=== PATIENT | male | born 1935 | race Caucasian/White ===

== ENCOUNTER 2017-03-30 15:52 | Inpatient (IN) | payer OTHER ==
[~2017-03-30] VITALS: Ht 180.3 cm; Wt 55.0 kg
[2017-03-30 16:25] LABS: EOSINOPHIL (%) 0 % (0-5); HEMATOCRIT 28.5 % (38.0-50.0); IMMATURE GRANULOCYTE (%) 1.1 % (0.0-0.7); IMMATURE GRANULOCYTE COUNT 0.3 K/uL; INSTRUMENT ABS NEUTROPHIL CT 21.7 K/uL; LYMPHOCYTE COUNT 0.5 K/uL (1.0-2.8); MCH 29.7 PG (29.0-34.0); MCHC 30.9 G/DL (30.0-36.0); MCV 96.3 FL (86-99); MEAN PLAT.VOLUME 9.5 uM^3 (9.0-12.4); MONOCYTE (%) 2.9 % (3-12); MONOCYTE COUNT 0.7 K/uL (0-0.8); NEUTROPHIL (%) 93.9 % (45-76); NEUTROPHIL COUNT 21.7 K/uL (1.8-6.4); PLATELET COUNT 239 K/uL (156-360); RBC DIS.WIDTH-CV 15.4 % (11.8-14.6); RBC DIS.WIDTH-SD 53.8 % (39-53); RED BLOOD COUNT 2.96 M/uL (4.00-5.50); WHITE BLOOD COUNT 23.1 K/uL (4.1-10.2)
[2017-03-30 16:33] LABS: CHLORIDE 113 mEq/L (99-109); POTASSIUM 4.9 mEq/L (3.7-5.4); SODIUM 142 mEq/L (136-147)
[2017-03-30 16:35] LABS: GLUCOSE 131 mg/dL (70-99)
[2017-03-30 16:37] LABS: ANION GAP 19 MEQ/L (2-14); TOTAL BILIRUBIN 0.5 mg/dL (0.0-1.0)
[2017-03-30 16:39] LABS: ALKALINE PHOSPHATASE 51 IU/L (3-129)
[2017-03-30 16:40] LABS: UREA NITROGEN (BUN) 99 mg/dL (9-23)
[2017-03-30 16:42] LABS: TOTAL CK 1839 IU/L (1-294)
[2017-03-30 16:48] LABS: TROP-I INTERPRETATION NEGATIVE; TROPONIN-I 0.11 ng/mL (0.0-0.30)
[2017-03-30 16:53] LABS: GFR ESTIMATE (CALCULATED) 4 mL/min/
[2017-03-30 17:10] LABS: CREATINE KINASE 1839 IU/L (1-294)
[2017-03-30 17:12] LABS: CK-MB 20.8 ng/mL (0.0-4.9)
[2017-03-30] MEDS ORDERED: VITAMIN D-32000 UNI2 PO (17:53)
[2017-03-30] MEDS ORDERED: ZYRTEC10 M3 PO (17:53)
[2017-03-30] MEDS ORDERED: FLOMAX0.4 MG PO (17:53)
[2017-03-30 18:37] LABS: ADD MIUA? YES; BILIRUBIN NEGATIVE; BLOOD LARGE; COLOR YELLOW ((YELLOW)); GLUCOSE (STRIP) 50; KETONES 5; LEUKOCYTES TRACE; NITRITE NEGATIVE; PROTEIN (STRIP) 30; SPECIFIC GRAVITY 1.013 (1.000-1.030); UROBILINOGEN 0.2 MG/DL (0.2-1.0)
[2017-03-30 18:44] LABS: BACTERIA NONE SEEN /HPF; EPITHELIAL CELLS RARE /HPF; MUCUS NONE SEEN /LPF; RED BLOOD CELLS 0-5 /HPF (0-5); UCUL ADDED? NO; WHITE BLOOD CELLS 0-5 /HPF (0-5)
[2017-03-30 18:45] LABS: URIC ACID 13.4 mg/dL (3.1-9.2)
[2017-03-30 18:45] LABS: BASE EXCESS -12.3 mEq/L (-3 to +3); BICARBONATE 12.6 mEq/L (22-26); CARBOXY HGB 1.2 % (0-5); COMMENTS - BLOOD GASES C+; METHEMOGLOBIN 0.6 % (0-1.5); PCO2 25 mm Hg (35-45); PO2 115 mm Hg (80-100); SITE RB; pH 7.31 (7.35-7.45)
[2017-03-30 18:46] LABS: FI02 21 %
[2017-03-30 20:10] LABS: UR CREATININE CONCENTRATION 91.5 MG/DL
[2017-03-30 20:35] LABS: IRON 10 MCG/DL (35-150)
[2017-03-30 21:12] VITALS: BP 189/89
[2017-03-30 21:50] VITALS: BP 189/89
[2017-03-30 22:33] VITALS: BP 157/71
[2017-03-31 03:45] VITALS: BP 124/60
[2017-03-31 05:44] LABS: HEMATOCRIT 24.2 % (38.0-50.0); IMM.RETIC FRACTION 22.7 % (3-19); MCH 29.6 PG (29.0-34.0); MCV 95.7 FL (86-99); MEAN PLAT.VOLUME 10.6 uM^3 (9.0-12.4); NRBC (%) 0.1 /100 WBC (0-0); PLATELET COUNT 220 K/uL (156-360); RBC DIS.WIDTH-CV 15.6 % (11.8-14.6); RBC DIS.WIDTH-SD 54.1 % (39-53); RED BLOOD COUNT 2.53 M/uL (4.00-5.50); RETICULOCYTE COUNT 1.1 % (0.5-1.8); WHITE BLOOD COUNT 15.3 K/uL (4.1-10.2)
[2017-03-31 06:17] LABS: ANION GAP 18 MEQ/L (2-14); CHLORIDE 111 MEQ/L (99-109); GFR ESTIMATE (CALCULATED) 5 mL/min/; GLUCOSE 108 mg/dL (70-99); SAMPLE HEMOLYSIS CHECK 0; SAMPLE ICTERIC CHECK 0; SAMPLE LIPEMIA CHECK 0; SODIUM 145 MEQ/L (136-147); UREA NITROGEN (BUN) 97 mg/dL (9-23)
[2017-03-31 07:24] VITALS: BP 121/57
[2017-03-31 07:45] LABS: INTACT PARATHYROID HORMONE 97 pg/mL (10-69)
[2017-03-31 08:07] VITALS: BP 109/49
[2017-03-31 08:10] LABS: URINE TOTAL PROTEIN 199 MG/DL (0-10)
[2017-03-31 10:18] LABS: INTERNAL CONTROL VALID? YES
[2017-03-31 11:51] VITALS: BP 119/59
[2017-03-31 14:59] VITALS: BP 111/53
[2017-03-31 20:37] VITALS: BP 110/52
[2017-04-01 00:17] VITALS: BP 120/77
[2017-04-01 04:21] VITALS: BP 107/54
[2017-04-01 05:10] LABS: HEMATOCRIT 22.3 % (38.0-50.0); MCH 29.8 PG (29.0-34.0); MCHC 31.4 G/DL (30.0-36.0); MCV 94.9 FL (86-99); MEAN PLAT.VOLUME 10.5 uM^3 (9.0-12.4); NRBC (%) 0.2 /100 WBC (0-0); PLATELET COUNT 195 K/uL (156-360); RBC DIS.WIDTH-CV 15.5 % (11.8-14.6); RBC DIS.WIDTH-SD 52.9 % (39-53); RED BLOOD COUNT 2.35 M/uL (4.00-5.50); WHITE BLOOD COUNT 11.6 K/uL (4.1-10.2)
[2017-04-01 05:42] LABS: ANION GAP 15 MEQ/L (2-14); CHLORIDE 106 MEQ/L (99-109); GFR ESTIMATE (CALCULATED) 5 mL/min/; GLUCOSE 93 mg/dL (70-99); POTASSIUM 3.8 MEQ/L (3.7-5.4); SAMPLE HEMOLYSIS CHECK 0; SAMPLE ICTERIC CHECK 0; SAMPLE LIPEMIA CHECK 0; SODIUM 141 MEQ/L (136-147); UREA NITROGEN (BUN) 91 mg/dL (9-23)
[2017-04-01 07:55] VITALS: BP 120/56
[2017-04-01 08:15] LABS: INTERNAL CONTROL VALID? YES
[2017-04-01 11:19] VITALS: BP 98/54
[2017-04-01 20:07] VITALS: BP 107/55
[2017-04-01 23:47] VITALS: BP 109/56
[2017-04-02 03:50] VITALS: BP 100/55
[2017-04-02 05:14] LABS: HEMATOCRIT 22.9 % (38.0-50.0); MCH 29.8 PG (29.0-34.0); MCHC 31.4 G/DL (30.0-36.0); MCV 94.6 FL (86-99); MEAN PLAT.VOLUME 10.7 uM^3 (9.0-12.4); NRBC (%) 0.2 /100 WBC (0-0); PLATELET COUNT 201 K/uL (156-360); RBC DIS.WIDTH-CV 15.5 % (11.8-14.6); RBC DIS.WIDTH-SD 53.7 % (39-53); RED BLOOD COUNT 2.42 M/uL (4.00-5.50); WHITE BLOOD COUNT 12.5 K/uL (4.1-10.2)
[2017-04-02 09:15] VITALS: BP 107/87
[2017-04-02 10:01] LABS: ANION GAP 15 MEQ/L (2-14); CHLORIDE 104 MEQ/L (99-109); GFR ESTIMATE (CALCULATED) 5 mL/min/; GLUCOSE 77 mg/dL (70-99); POTASSIUM 3.9 MEQ/L (3.7-5.4); SAMPLE HEMOLYSIS CHECK 0; SAMPLE ICTERIC CHECK 0; SAMPLE LIPEMIA CHECK 0; SODIUM 139 MEQ/L (136-147); UREA NITROGEN (BUN) 89 mg/dL (9-23)
[2017-04-02 11:24] VITALS: BP 108/71
[2017-04-02 15:50] VITALS: BP 109/67
[2017-04-02 20:34] VITALS: BP 102/54
[2017-04-03] VITALS (12 sets, daily range): BP systolic 113–126; BP diastolic 55–60
[2017-04-03 06:05] LABS: HEMATOCRIT 21.2 % (38.0-50.0); MCH 30.2 PG (29.0-34.0); MCHC 31.6 G/DL (30.0-36.0); MCV 95.5 FL (86-99); MEAN PLAT.VOLUME 11.3 uM^3 (9.0-12.4); NRBC (%) 0.4 /100 WBC (0-0); PLATELET COUNT 188 K/uL (156-360); RBC DIS.WIDTH-CV 15.4 % (11.8-14.6); RBC DIS.WIDTH-SD 53.3 % (39-53); RED BLOOD COUNT 2.22 M/uL (4.00-5.50); WHITE BLOOD COUNT 13.3 K/uL (4.1-10.2)
[2017-04-03 06:39] LABS: ANION GAP 17 MEQ/L (2-14); CHLORIDE 102 MEQ/L (99-109); GFR ESTIMATE (CALCULATED) 5 mL/min/; GLUCOSE 70 mg/dL (70-99); POTASSIUM 3.6 MEQ/L (3.7-5.4); SAMPLE HEMOLYSIS CHECK 0; SAMPLE ICTERIC CHECK 0; SAMPLE LIPEMIA CHECK 0; SODIUM 136 MEQ/L (136-147); UREA NITROGEN (BUN) 84 mg/dL (9-23)
[2017-04-03 16:22] LABS: METH RESISTANT S AUREUS PCR NEGATIVE (NEGATIVE)
[2017-04-03 16:26] LABS: PROBE CHECK PASS; SPECIMEN PROCESSING CONTROL PASS
[2017-04-04] VITALS (7 sets, daily range): BP systolic 122–134; BP diastolic 52–88
[2017-04-04 05:53] LABS: HEMATOCRIT 28.4 % (38.0-50.0); MCH 31.3 PG (29.0-34.0); MCHC 34.5 G/DL (30.0-36.0); MEAN PLAT.VOLUME 11.1 uM^3 (9.0-12.4); NRBC (%) 0.1 /100 WBC (0-0); PLATELET COUNT 180 K/uL (156-360); RBC DIS.WIDTH-CV 16.3 % (11.8-14.6); RBC DIS.WIDTH-SD 53.5 % (39-53); WHITE BLOOD COUNT 13.8 K/uL (4.1-10.2)
[2017-04-04 05:54] LABS: MCV 90.7 FL (86-99); RED BLOOD COUNT 3.13 M/uL (4.00-5.50)
[2017-04-04 06:15] LABS: ANION GAP 16 MEQ/L (2-14); CHLORIDE 102 MEQ/L (99-109); GFR ESTIMATE (CALCULATED) 5 mL/min/; GLUCOSE 72 mg/dL (70-99); SAMPLE HEMOLYSIS CHECK 0; SAMPLE ICTERIC CHECK 0; SAMPLE LIPEMIA CHECK 0; SODIUM 136 MEQ/L (136-147); UREA NITROGEN (BUN) 86 mg/dL (9-23)
[2017-04-05] VITALS (7 sets, daily range): BP systolic 126–161; BP diastolic 57–79
[2017-04-05 05:19] LABS: HEMATOCRIT 30.3 % (38.0-50.0); MCHC 33.7 G/DL (30.0-36.0); MCV 92.1 FL (86-99); MEAN PLAT.VOLUME 11.2 uM^3 (9.0-12.4); NRBC (%) 0.2 /100 WBC (0-0); PLATELET COUNT 209 K/uL (156-360); RBC DIS.WIDTH-CV 16.1 % (11.8-14.6); RBC DIS.WIDTH-SD 53.6 % (39-53); RED BLOOD COUNT 3.29 M/uL (4.00-5.50); WHITE BLOOD COUNT 16.1 K/uL (4.1-10.2)
[2017-04-05 11:53] LABS: ANION GAP 19 MEQ/L (2-14); CHLORIDE 103 MEQ/L (99-109); GFR ESTIMATE (CALCULATED) 5 mL/min/; GLUCOSE 69 mg/dL (70-99); POTASSIUM 4.2 MEQ/L (3.7-5.4); SAMPLE HEMOLYSIS CHECK 0; SAMPLE ICTERIC CHECK 0; SAMPLE LIPEMIA CHECK 0; SODIUM 137 MEQ/L (136-147); UREA NITROGEN (BUN) 87 mg/dL (9-23)
[2017-04-06 07:11] LABS: ANION GAP 18 MEQ/L (2-14); CHLORIDE 101 MEQ/L (99-109); GFR ESTIMATE (CALCULATED) 5 mL/min/; GLUCOSE 58 mg/dL (70-99); POTASSIUM 4.4 MEQ/L (3.7-5.4); SAMPLE HEMOLYSIS CHECK 0; SAMPLE ICTERIC CHECK 0; SAMPLE LIPEMIA CHECK 0; SODIUM 136 MEQ/L (136-147); UREA NITROGEN (BUN) 92 mg/dL (9-23)
[2017-04-06 07:21] VITALS: BP 173/75
[2017-04-06 11:28] LABS: POINT-OF-CARE METER ID UU13113717
[2017-04-06 16:12] VITALS: BP 151/67
[2017-04-07 03:55] VITALS: BP 150/69; BP 157/99
[2017-04-07 05:34] LABS: POINT-OF-CARE METER ID UU13113717
[2017-04-07 06:12] LABS: POINT-OF-CARE METER ID UU13113717
[2017-04-07 06:33] LABS: HEMATOCRIT 30.5 % (38.0-50.0); MCH 29.4 PG (29.0-34.0); MCHC 31.5 G/DL (30.0-36.0); MCV 93.3 FL (86-99); MEAN PLAT.VOLUME 10.5 uM^3 (9.0-12.4); PLATELET COUNT 222 K/uL (156-360); RBC DIS.WIDTH-CV 15.9 % (11.8-14.6); RBC DIS.WIDTH-SD 53.3 % (39-53); RED BLOOD COUNT 3.27 M/uL (4.00-5.50); WHITE BLOOD COUNT 12.6 K/uL (4.1-10.2)
[2017-04-07 06:54] LABS: ANION GAP 19 MEQ/L (2-14); CHLORIDE 104 MEQ/L (99-109); GFR ESTIMATE (CALCULATED) 5 mL/min/; GLUCOSE 78 mg/dL (70-99); POTASSIUM 4.2 MEQ/L (3.7-5.4); SAMPLE HEMOLYSIS CHECK 0; SAMPLE ICTERIC CHECK 0; SAMPLE LIPEMIA CHECK 0; SODIUM 141 MEQ/L (136-147); UREA NITROGEN (BUN) 93 mg/dL (9-23)
[2017-04-07 07:27] VITALS: BP 141/71
[2017-04-07 10:35] LABS: POINT-OF-CARE METER ID UU13113717
[2017-04-07 15:18] VITALS: BP 160/73
[2017-04-07 18:16] LABS: POINT-OF-CARE METER ID UU14188625
[2017-04-08] VITALS: BP 155/68
[2017-04-08 03:24] LABS: POINT-OF-CARE METER ID UU14188625
[2017-04-08 07:44] VITALS: BP 135/59
[2017-04-08 08:45] LABS: EOSINOPHIL (%) 1.6 % (0-5); EOSINOPHIL COUNT 0.2 K/uL (0-0.3); HEMATOCRIT 28.7 % (38.0-50.0); IMMATURE GRANULOCYTE (%) 0.9 % (0.0-0.7); IMMATURE GRANULOCYTE COUNT 0.1 K/uL; INSTRUMENT ABS NEUTROPHIL CT 9.8 K/uL; MCH 29.6 PG (29.0-34.0); MCHC 31.4 G/DL (30.0-36.0); MCV 94.4 FL (86-99); MEAN PLAT.VOLUME 10.8 uM^3 (9.0-12.4); MONOCYTE (%) 12.7 % (3-12); MONOCYTE COUNT 1.6 K/uL (0-0.8); NEUTROPHIL (%) 76.8 % (45-76); NEUTROPHIL COUNT 9.8 K/uL (1.8-6.4); PLATELET COUNT 202 K/uL (156-360); RBC DIS.WIDTH-CV 15.9 % (11.8-14.6); RED BLOOD COUNT 3.04 M/uL (4.00-5.50); WHITE BLOOD COUNT 12.8 K/uL (4.1-10.2)
[2017-04-08 09:25] LABS: ANION GAP 17 MEQ/L (2-14); CHLORIDE 104 MEQ/L (99-109); GFR ESTIMATE (CALCULATED) 5 mL/min/; GLUCOSE 77 mg/dL (70-99); POTASSIUM 3.6 MEQ/L (3.7-5.4); SAMPLE HEMOLYSIS CHECK 0; SAMPLE ICTERIC CHECK 0; SAMPLE LIPEMIA CHECK 0; SODIUM 139 MEQ/L (136-147); UREA NITROGEN (BUN) 84 mg/dL (9-23)
[2017-04-08 10:07] LABS: HBSG INDEX 0.19; HPCA INDEX 0.24
[2017-04-08 10:08] LABS: AHBS INDEX 0.39; HEPATITIS B SURFACE ANTIBODY Nonreactive
[2017-04-08 10:42] LABS: ANTI-HEPATITIS B CORE (TOTAL) Nonreactive; HBCT INDEX 0.19
[2017-04-08 12:39] LABS: POINT-OF-CARE METER ID UU14188625
[2017-04-08 15:35] VITALS: BP 129/62
[2017-04-08 21:23] LABS: POINT-OF-CARE METER ID UU14188625
[2017-04-08 23:44] VITALS: BP 139/67
[2017-04-09 09:08] LABS: HEMATOCRIT 28.3 % (38.0-50.0); MCH 29.8 PG (29.0-34.0); MCHC 31.1 G/DL (30.0-36.0); MCV 95.9 FL (86-99); MEAN PLAT.VOLUME 11.3 uM^3 (9.0-12.4); PLATELET COUNT 186 K/uL (156-360); RBC DIS.WIDTH-CV 16.1 % (11.8-14.6); RBC DIS.WIDTH-SD 55.3 % (39-53); RED BLOOD COUNT 2.95 M/uL (4.00-5.50); WHITE BLOOD COUNT 11.4 K/uL (4.1-10.2)
[2017-04-09 10:02] LABS: ANION GAP 12 MEQ/L (2-14); CHLORIDE 106 MEQ/L (99-109); GFR ESTIMATE (CALCULATED) 7 mL/min/; POTASSIUM 3.6 MEQ/L (3.7-5.4); SAMPLE HEMOLYSIS CHECK 0; SAMPLE ICTERIC CHECK 0; SAMPLE LIPEMIA CHECK 0; SODIUM 140 MEQ/L (136-147); UREA NITROGEN (BUN) 53 mg/dL (9-23)
[2017-04-09 10:03] LABS: GLUCOSE 109 mg/dL (70-99)
[2017-04-09 11:55] VITALS: BP 149/69
[2017-04-09 12:09] LABS: POINT-OF-CARE METER ID UU14188625
[2017-04-09 15:39] VITALS: BP 165/73
[2017-04-09 21:17] LABS: POINT-OF-CARE METER ID UU14188625
[2017-04-09 23:18] VITALS: BP 146/69
[2017-04-10 05:00] LABS: POINT-OF-CARE METER ID UU13113717
[2017-04-10 07:00] LABS: HEMATOCRIT 28.6 % (38.0-50.0); MCH 31.5 PG (29.0-34.0); MCHC 32.5 G/DL (30.0-36.0); MCV 96.9 FL (86-99); MEAN PLAT.VOLUME 11.7 uM^3 (9.0-12.4); PLATELET COUNT 155 K/uL (156-360); RBC DIS.WIDTH-CV 16.2 % (11.8-14.6); RBC DIS.WIDTH-SD 56.1 % (39-53); RED BLOOD COUNT 2.95 M/uL (4.00-5.50); WHITE BLOOD COUNT 11.7 K/uL (4.1-10.2)
[2017-04-10 07:21] LABS: ANION GAP 12 MEQ/L (2-14); CHLORIDE 105 MEQ/L (99-109); GFR ESTIMATE (CALCULATED) 11 mL/min/; GLUCOSE 83 mg/dL (70-99); POTASSIUM 3.8 MEQ/L (3.7-5.4); SAMPLE HEMOLYSIS CHECK 0; SAMPLE ICTERIC CHECK 0; SAMPLE LIPEMIA CHECK 0; SODIUM 140 MEQ/L (136-147); UREA NITROGEN (BUN) 35 mg/dL (9-23)
[2017-04-10 08:34] VITALS: BP 124/64
[2017-04-10 13:14] VITALS: BP 142/67
[2017-04-10 15:58] VITALS: BP 144/65
[2017-04-10 20:30] VITALS: BP 128/75
[2017-04-10 20:46] LABS: POINT-OF-CARE METER ID UU14188625
[2017-04-11 00:02] VITALS: BP 134/66
[2017-04-11 05:50] LABS: HEMATOCRIT 28.8 % (38.0-50.0); MCH 29.5 PG (29.0-34.0); MCHC 30.2 G/DL (30.0-36.0); MCV 97.6 FL (86-99); PLATELET COUNT 148 K/uL (156-360); RBC DIS.WIDTH-CV 16.2 % (11.8-14.6); RBC DIS.WIDTH-SD 55.9 % (39-53); RED BLOOD COUNT 2.95 M/uL (4.00-5.50); WHITE BLOOD COUNT 11.5 K/uL (4.1-10.2)
[2017-04-11 06:16] LABS: ANION GAP 7 MEQ/L (2-14); ANION GAP 8 MEQ/L (2-14); CHLORIDE 101 MEQ/L (99-109); CHLORIDE 104 MEQ/L (99-109); GFR ESTIMATE (CALCULATED) 16 mL/min/; GLUCOSE 82 mg/dL (70-99); GLUCOSE 83 mg/dL (70-99); POTASSIUM 3.7 MEQ/L (3.7-5.4); SAMPLE HEMOLYSIS CHECK 0; SAMPLE ICTERIC CHECK 0; SAMPLE LIPEMIA CHECK 0; SODIUM 137 MEQ/L (136-147); SODIUM 139 MEQ/L (136-147); UREA NITROGEN (BUN) 20 mg/dL (9-23)
[2017-04-11 06:17] LABS: GFR ESTIMATE (CALCULATED) 15 mL/min/
[2017-04-11 06:27] LABS: POINT-OF-CARE METER ID UU13113717
[2017-04-11 07:30] VITALS: BP 142/58
[2017-04-11 07:56] VITALS: BP 129/74
[2017-04-11 08:36] LABS: POINT-OF-CARE METER ID UU14188625
[2017-04-11 11:03] VITALS: BP 142/60
[2017-04-11 12:44] LABS: POINT-OF-CARE METER ID UU14188625
[2017-04-11 17:53] LABS: POINT-OF-CARE METER ID UU13113717
[2017-04-12] LABS: POINT-OF-CARE METER ID UU13113717
[2017-04-12 00:23] VITALS: BP 151/72
[2017-04-12 06:59] LABS: POINT-OF-CARE METER ID UU14188625
[2017-04-12 07:03] VITALS: BP 144/69
[2017-04-12 07:24] LABS: ANION GAP 9 MEQ/L (2-14); CHLORIDE 106 MEQ/L (99-109); GFR ESTIMATE (CALCULATED) 12 mL/min/; GLUCOSE 87 mg/dL (70-99); POTASSIUM 3.9 MEQ/L (3.7-5.4); SAMPLE HEMOLYSIS CHECK 0; SAMPLE ICTERIC CHECK 0; SAMPLE LIPEMIA CHECK 0; SODIUM 143 MEQ/L (136-147); UREA NITROGEN (BUN) 27 mg/dL (9-23)
[2017-04-12 15:01] VITALS: BP 136/62
[2017-04-12 16:37] LABS: POINT-OF-CARE METER ID UU14188625
[2017-04-12 21:59] VITALS: BP 162/70
[2017-04-12 23:35] VITALS: BP 166/71
[2017-04-13 06:55] LABS: ANION GAP 10 MEQ/L (2-14); CHLORIDE 102 MEQ/L (99-109); GFR ESTIMATE (CALCULATED) 10 mL/min/; GLUCOSE 86 mg/dL (70-99); POTASSIUM 4.1 MEQ/L (3.7-5.4); SAMPLE HEMOLYSIS CHECK 0; SAMPLE ICTERIC CHECK 0; SAMPLE LIPEMIA CHECK 0; SODIUM 140 MEQ/L (136-147); UREA NITROGEN (BUN) 33 mg/dL (9-23)
[2017-04-13 07:08] VITALS: BP 173/77
[2017-04-13 15:05] VITALS: BP 138/65
[2017-04-13 16:32] LABS: POINT-OF-CARE METER ID UU13113717
[2017-04-14 00:53] VITALS: BP 172/85
[2017-04-14 08:00] VITALS: BP 137/65
[2017-04-14 08:19] LABS: HEMATOCRIT 29.4 % (38.0-50.0); MCH 30.2 PG (29.0-34.0); MCHC 30.6 G/DL (30.0-36.0); MCV 98.7 FL (86-99); MEAN PLAT.VOLUME 11.3 uM^3 (9.0-12.4); RBC DIS.WIDTH-CV 16.4 % (11.8-14.6); RBC DIS.WIDTH-SD 57.1 % (39-53); RED BLOOD COUNT 2.98 M/uL (4.00-5.50); WHITE BLOOD COUNT 14.4 K/uL (4.1-10.2)
[2017-04-14 08:20] LABS: PLATELET COUNT 203 K/uL (156-360)
[2017-04-14 09:09] LABS: ANION GAP 9 MEQ/L (2-14); CHLORIDE 102 MEQ/L (99-109); GFR ESTIMATE (CALCULATED) 9 mL/min/; GLUCOSE 90 mg/dL (70-99); POTASSIUM 4.1 MEQ/L (3.7-5.4); SAMPLE HEMOLYSIS CHECK 0; SAMPLE ICTERIC CHECK 0; SAMPLE LIPEMIA CHECK 0; SODIUM 138 MEQ/L (136-147); UREA NITROGEN (BUN) 38 mg/dL (9-23)
[2017-04-14 11:48] LABS: POINT-OF-CARE METER ID UU14188625
[2017-04-14 15:53] VITALS: BP 151/76
[2017-04-14 21:51] VITALS: BP 152/80
[2017-04-14 23:42] VITALS: BP 171/84
[2017-04-14 23:48] LABS: POINT-OF-CARE METER ID UU13113717
[2017-04-15] VITALS (7 sets, daily range): BP systolic 146–184; BP diastolic 66–102
[2017-04-15 06:05] LABS: HEMATOCRIT 27.3 % (38.0-50.0); MCH 30.5 PG (29.0-34.0); MCHC 30.8 G/DL (30.0-36.0); MCV 99.3 FL (86-99); MEAN PLAT.VOLUME 11.4 uM^3 (9.0-12.4); PLATELET COUNT 157 K/uL (156-360); RBC DIS.WIDTH-CV 16.7 % (11.8-14.6); RBC DIS.WIDTH-SD 59.4 % (39-53); RED BLOOD COUNT 2.75 M/uL (4.00-5.50); WHITE BLOOD COUNT 9.9 K/uL (4.1-10.2)
[2017-04-15 06:39] LABS: ANION GAP 9 MEQ/L (2-14); CHLORIDE 106 MEQ/L (99-109); GFR ESTIMATE (CALCULATED) 15 mL/min/; GLUCOSE 73 mg/dL (70-99); POTASSIUM 4.1 MEQ/L (3.7-5.4); SAMPLE HEMOLYSIS CHECK 0; SAMPLE ICTERIC CHECK 0; SAMPLE LIPEMIA CHECK 0; SODIUM 142 MEQ/L (136-147); UREA NITROGEN (BUN) 24 mg/dL (9-23)
[2017-04-15 08:24] LABS: POINT-OF-CARE METER ID UU14188625
[2017-04-15 08:24] LABS: POINT-OF-CARE METER ID UU14188625
[2017-04-15 16:16] LABS: POINT-OF-CARE METER ID UU14188625
[2017-04-16 02:11] LABS: POINT-OF-CARE METER ID UU13113717
[2017-04-16 04:28] VITALS: BP 164/74
[2017-04-16 07:12] VITALS: BP 171/84
[2017-04-16 08:13] LABS: HEMATOCRIT 28.4 % (38.0-50.0); MCH 29.9 PG (29.0-34.0); MCHC 29.9 G/DL (30.0-36.0); MEAN PLAT.VOLUME 11.1 uM^3 (9.0-12.4); PLATELET COUNT 161 K/uL (156-360); RBC DIS.WIDTH-CV 16.6 % (11.8-14.6); RBC DIS.WIDTH-SD 59.1 % (39-53); RED BLOOD COUNT 2.84 M/uL (4.00-5.50); WHITE BLOOD COUNT 9.9 K/uL (4.1-10.2)
[2017-04-16 08:34] LABS: ANION GAP 5 MEQ/L (2-14); CHLORIDE 106 MEQ/L (99-109); GFR ESTIMATE (CALCULATED) 12 mL/min/; POTASSIUM 4.1 MEQ/L (3.7-5.4); SAMPLE HEMOLYSIS CHECK 0; SAMPLE ICTERIC CHECK 0; SAMPLE LIPEMIA CHECK 0; SODIUM 138 MEQ/L (136-147); UREA NITROGEN (BUN) 31 mg/dL (9-23)
[2017-04-16 08:35] LABS: GLUCOSE 127 mg/dL (70-99)
[2017-04-16 11:26] VITALS: BP 150/67
[2017-04-16 11:35] LABS: POINT-OF-CARE METER ID UU13113717
[2017-04-16] MEDS ORDERED: MEGESTROL400 MG/10 PO (12:04)
[2017-04-16] MEDS ORDERED: SPIRIVA RESPIMAT4 GM IH (12:05)
[2017-04-16] MEDS ORDERED: ALBUTEROL2.5 MG/0.5 AEROSOL (12:06)
[2017-04-16] MEDS ORDERED: CLONIDINE HCL0.1 MG PO (12:07)
[2017-04-16] MEDS ORDERED: ADVAIR HFA120 INHALA IH (12:07)
[2017-04-16] MEDS ORDERED: LOPRESSOR25 MG PO (12:07)
[2017-04-16] MEDS ORDERED: CALCITRIOL0.25 MCG PO (12:08)
[2017-04-16] MEDS ORDERED: TYLENOL REGULA325 MG PO (12:09)
[2017-04-16 15:11] VITALS: BP 138/62
[2017-04-16 19:42] VITALS: BP 135/66
[2017-04-16 23:57] VITALS: BP 174/74
[2017-04-17 03:57] VITALS: BP 185/78
[2017-04-17 06:10] LABS: HEMATOCRIT 29.8 % (38.0-50.0); MCH 29.7 PG (29.0-34.0); MCHC 29.9 G/DL (30.0-36.0); MCV 99.3 FL (86-99); MEAN PLAT.VOLUME 11.4 uM^3 (9.0-12.4); PLATELET COUNT 148 K/uL (156-360); RBC DIS.WIDTH-CV 16.8 % (11.8-14.6); RBC DIS.WIDTH-SD 58.8 % (39-53); WHITE BLOOD COUNT 8.8 K/uL (4.1-10.2)
[2017-04-17 06:34] LABS: ANION GAP 8 MEQ/L (2-14); CHLORIDE 102 MEQ/L (99-109); GFR ESTIMATE (CALCULATED) 18 mL/min/; GLUCOSE 78 mg/dL (70-99); POTASSIUM 4.2 MEQ/L (3.7-5.4); SAMPLE HEMOLYSIS CHECK 0; SAMPLE ICTERIC CHECK 0; SAMPLE LIPEMIA CHECK 0; SODIUM 138 MEQ/L (136-147); UREA NITROGEN (BUN) 19 mg/dL (9-23)
[2017-04-17 12:57] VITALS: BP 144/79
[2017-04-17 16:42] VITALS: BP 146/67
== END 2017-04-17 18:32 | DRG 871 ==
LOC: EME 15:52 → EDOF 18:22 → 5SOUTH 18:22 → 4EAST 18:22 → ENRESERV 18:25 → 4EAST 20:39 → ENRESERV 04-05 17:21 → 5SOUTH 04-05 18:04
PROVIDERS: Emergency Medicine; Hospitalist; Internal Medicine; Internal Medicine Nephrology; Physician Assistant; Physician Assistant Medical; Student in an Organized Health Care Education/Training Program
PROC: 30233N1 Transfusion of Nonautologous Red Blood Cells into Peripheral Vein, Percutaneous Approach (ICD-10-PCS; principal; 2017-04-03)
PROC: 05HM33Z Insertion of Infusion Device into Right Internal Jugular Vein, Percutaneous Approach (ICD-10-PCS; 2017-04-07)
PROC: B543ZZA Ultrasonography of Right Jugular Veins, Guidance (ICD-10-PCS; 2017-04-07)
PROC: B5181ZA Fluoroscopy of Superior Vena Cava using Low Osmolar Contrast, Guidance (ICD-10-PCS; 2017-04-14)
PROC: 5A1D70Z Performance of Urinary Filtration, Intermittent, Less than 6 Hours Per Day (ICD-10-PCS; 2017-04-14)
PROC: 02HV33Z Insertion of Infusion Device into Superior Vena Cava, Percutaneous Approach (ICD-10-PCS; 2017-04-14)
DX: A41.9 Sepsis, unspecified organism (principal); J18.9 Pneumonia, unspecified organism; N17.0 Acute kidney failure with tubular necrosis; M62.82 Rhabdomyolysis; E87.2 Acidosis; E86.0 Dehydration; D63.1 Anemia in chronic kidney disease; E44.0 Moderate protein-calorie malnutrition; Z68.1 Body mass index [BMI] 19.9 or less, adult; N18.6 End stage renal disease; J44.0 Chronic obstructive pulmonary disease with (acute) lower respiratory infection; I12.9 Hypertensive chronic kidney disease with stage 1 through stage 4 chronic kidney disease, or unspecified chronic kidney disease; N40.0 Benign prostatic hyperplasia without lower urinary tract symptoms; K57.90 Diverticulosis of intestine, part unspecified, without perforation or abscess without bleeding; R64 Cachexia; E78.5 Hyperlipidemia, unspecified; W19.XXXA Unspecified fall, initial encounter; N20.0 Calculus of kidney; E83.39 Other disorders of phosphorus metabolism; D50.9 Iron deficiency anemia, unspecified; N25.81 Secondary hyperparathyroidism of renal origin; K86.89 Other specified diseases of pancreas; N28.89 Other specified disorders of kidney and ureter; N25.89 Other disorders resulting from impaired renal tubular function; B95.62 Methicillin resistant Staphylococcus aureus infection as the cause of diseases classified elsewhere; Z63.4 Disappearance and death of family member; Z87.891 Personal history of nicotine dependence; Z87.442 Personal history of urinary calculi; Z80.1 Family history of malignant neoplasm of trachea, bronchus and lung; Z85.828 Personal history of other malignant neoplasm of skin
CPT/HCPCS: 36600; 70450; 71010; 71020; 71250; 73502; 74176; 76770; 80048; 80048 91; 80053; 80069; 81003; 82272; 82306; 82436; 82550; 82553; 82570; 82607; 82746; 82803; 82948; 83540; 83605; 83935; 83970; 84133; 84156; 84300; 84443; 84466; 84484; 84550; 85025; 85027; 85045; 86334; 86335; 86704; 86706; 86803; 86850; 86900; 86901; 86920; 87040; 87070; 87205; 87340; 87449; 87641; 89190; 92526 GN; 92610 GN; 93005; 94640; 94640 76; 94799; 97530 GO; 97530 GP; 99202; 99281; 99285; C1751; C1752; C1788; J0456; J0690; J0696; J0881; J1200; J1644; J1756; J1940; J2405; J3010; J7030; J7040; J7042; J7050; J7070; J7120; P9016

== ENCOUNTER → 2017-05-08 | Outpatient (CLI) | payer OTHER ==
[~2017-05-08] MED LIST: ADVAIR HFA120 INHALA IH; ALBUTEROL2.5 MG/0.5 AEROSOL; BACID1 CAP PO; CALCITRIOL0.25 MCG PO; CLONIDINE HCL0.1 MG PO; DULCOLAX10 MG PR; DUONEB 2.5-0.5 M3 ML AEROSOL; FLEET MINERAL133 ML PR; FLOMAX0.4 MG PO; LOPRESSOR25 MG PO; MEGESTROL400 MG/10 PO; ROCEPHIN1 GM/50 ML IV; SPIRIVA RESPIMAT4 GM IH; TYLENOL REGULA325 MG PO; VITAMIN D-32000 UNI2 PO; ZYRTEC10 M3 PO
== END | disposition home or self-care (01) ==
LOC: RAD 09:42
DX: R13.13 Dysphagia, pharyngeal phase (principal); R13.11 Dysphagia, oral phase
CPT/HCPCS: 71020; 74230; 92611 GN; G8997 GN CM; G8999 GN CM; G9158 GN CM

== ENCOUNTER 2017-05-09 17:50 | Inpatient (IN) | payer OTHER ==
[~2017-05-09] VITALS: Ht 180.3 cm; Wt 57.1 kg
[~2017-05-09 17:50] MED LIST changes: -BACID1 CAP PO; -DULCOLAX10 MG PR; -DUONEB 2.5-0.5 M3 ML AEROSOL; -FLEET MINERAL133 ML PR; -ROCEPHIN1 GM/50 ML IV
[2017-05-09 19:07] LABS: EOSINOPHIL (%) 0.3 % (0-5); HEMATOCRIT 25.4 % (38.0-50.0); IMMATURE GRANULOCYTE (%) 0.6 % (0.0-0.7); IMMATURE GRANULOCYTE COUNT 0.1 K/uL; INSTRUMENT ABS NEUTROPHIL CT 10.9 K/uL; LYMPHOCYTE COUNT 0.9 K/uL (1.0-2.8); MCH 31.4 PG (29.0-34.0); MCHC 31.9 G/DL (30.0-36.0); MCV 98.4 FL (86-99); MEAN PLAT.VOLUME 11.5 uM^3 (9.0-12.4); MONOCYTE (%) 4.5 % (3-12); MONOCYTE COUNT 0.6 K/uL (0-0.8); NEUTROPHIL COUNT 10.9 K/uL (1.8-6.4); PLATELET COUNT 115 K/uL (156-360); RBC DIS.WIDTH-CV 17.2 % (11.8-14.6); RBC DIS.WIDTH-SD 62.1 % (39-53); RED BLOOD COUNT 2.58 M/uL (4.00-5.50); WHITE BLOOD COUNT 12.5 K/uL (4.1-10.2)
[2017-05-09 19:17] LABS: CHLORIDE 103 mEq/L (99-109); POTASSIUM 3.6 mEq/L (3.7-5.4); SODIUM 141 mEq/L (136-147)
[2017-05-09 19:20] LABS: GLUCOSE 70 mg/dL (70-99)
[2017-05-09 19:21] LABS: ANION GAP 10 MEQ/L (2-14)
[2017-05-09 19:22] LABS: TOTAL BILIRUBIN 0.8 mg/dL (0.0-1.0)
[2017-05-09 19:23] LABS: ALKALINE PHOSPHATASE 43 IU/L (3-129); GFR ESTIMATE (CALCULATED) 20 mL/min/
[2017-05-09 19:24] LABS: UREA NITROGEN (BUN) 31 mg/dL (9-23)
[2017-05-09] MEDS ORDERED: DULCOLAX10 MG PR (21:59)
[2017-05-09] MEDS ORDERED: DUONEB 2.5-0.5 M3 ML AEROSOL (21:59)
[2017-05-09] MEDS ORDERED: FLEET MINERAL133 ML PR (22:00)
[2017-05-10 02:34] VITALS: BP 158/78
[2017-05-10 03:57] LABS: METH RESISTANT S AUREUS PCR POSITIVE (NEGATIVE)
[2017-05-10 04:05] LABS: PROBE CHECK PASS
[2017-05-10 08:00] VITALS: BP 164/72
[2017-05-10 12:00] VITALS: BP 158/80
[2017-05-10] MEDS ORDERED: ROCEPHIN1 GM/50 ML IV (14:41)
[2017-05-10] MEDS ORDERED: BACID1 CAP PO (14:44)
[2017-05-10 16:00] VITALS: BP 148/80
[2017-05-10 19:26] VITALS: BP 153/66
[2017-05-11] VITALS (10 sets, daily range): BP systolic 140–170; BP diastolic 60–95
[2017-05-12 04:16] VITALS: BP 171/77
[2017-05-12 07:35] VITALS: BP 158/88
[2017-05-12 12:27] LABS: EOSINOPHIL (%) 0.9 % (0-5); EOSINOPHIL COUNT 0.1 K/uL (0-0.3); HEMATOCRIT 24.5 % (38.0-50.0); IMMATURE GRANULOCYTE (%) 0.7 % (0.0-0.7); IMMATURE GRANULOCYTE COUNT 0.1 K/uL; LYMPHOCYTE COUNT 0.8 K/uL (1.0-2.8); MCH 30.8 PG (29.0-34.0); MCV 99.2 FL (86-99); MEAN PLAT.VOLUME 11.1 uM^3 (9.0-12.4); MONOCYTE (%) 4.7 % (3-12); MONOCYTE COUNT 0.5 K/uL (0-0.8); NEUTROPHIL (%) 86.1 % (45-76); RBC DIS.WIDTH-CV 17.5 % (11.8-14.6); RBC DIS.WIDTH-SD 63.1 % (39-53); RED BLOOD COUNT 2.47 M/uL (4.00-5.50); WHITE BLOOD COUNT 10.4 K/uL (4.1-10.2)
[2017-05-12 12:29] LABS: PLATELET COUNT 151 K/uL (156-360)
[2017-05-12 12:49] LABS: ANION GAP 13 MEQ/L (2-14); CHLORIDE 110 MEQ/L (99-109); POTASSIUM 3.7 MEQ/L (3.7-5.4); SAMPLE HEMOLYSIS CHECK 0; SAMPLE ICTERIC CHECK 0; SAMPLE LIPEMIA CHECK 0; SODIUM 146 MEQ/L (136-147)
[2017-05-12 12:55] LABS: GLUCOSE 72 mg/dL (70-99)
[2017-05-12 12:58] LABS: GFR ESTIMATE (CALCULATED) 11 mL/min/; UREA NITROGEN (BUN) 52 mg/dL (9-23)
[2017-05-12 15:46] VITALS: BP 131/67
[2017-05-12 19:37] VITALS: BP 169/81
[2017-05-13] VITALS (7 sets, daily range): BP systolic 126–174; BP diastolic 62–80
[2017-05-13 01:08] LABS: TROP-I INTERPRETATION NEGATIVE; TROPONIN-I 0.09 ng/mL (0.0-0.30)
[2017-05-13 01:11] LABS: CK-MB 9.8 ng/mL (0.0-4.9); CREATINE KINASE 85 IU/L (1-294)
[2017-05-13 01:12] LABS: TOTAL CK 85 IU/L (1-294)
[2017-05-14 03:43] VITALS: BP 135/62
[2017-05-14 05:36] LABS: HEMATOCRIT 25.2 % (38.0-50.0); MCH 31.1 PG (29.0-34.0); MCHC 31.7 G/DL (30.0-36.0); MCV 98.1 FL (86-99); PLATELET COUNT 156 K/uL (156-360); RBC DIS.WIDTH-CV 17.4 % (11.8-14.6); RBC DIS.WIDTH-SD 62.4 % (39-53); RED BLOOD COUNT 2.57 M/uL (4.00-5.50); WHITE BLOOD COUNT 12.5 K/uL (4.1-10.2)
[2017-05-14 05:37] LABS: MEAN PLAT.VOLUME 11.3 uM^3 (9.0-12.4)
[2017-05-14 06:15] LABS: ANION GAP 11 MEQ/L (2-14); CHLORIDE 106 MEQ/L (99-109); GFR ESTIMATE (CALCULATED) 15 mL/min/; POTASSIUM 3.7 MEQ/L (3.7-5.4); SAMPLE HEMOLYSIS CHECK 0; SAMPLE ICTERIC CHECK 0; SAMPLE LIPEMIA CHECK 0; SODIUM 140 MEQ/L (136-147); UREA NITROGEN (BUN) 34 mg/dL (9-23)
[2017-05-14 06:19] LABS: GLUCOSE 117 mg/dL (70-99)
[2017-05-14 07:10] VITALS: BP 154/72
[2017-05-14 11:10] VITALS: BP 131/61
[2017-05-14 16:15] VITALS: BP 137/67
[2017-05-14 20:00] VITALS: BP 128/62
[2017-05-14 23:30] VITALS: BP 133/66
[2017-05-15 03:09] VITALS: BP 130/60
[2017-05-15 06:46] LABS: POINT-OF-CARE METER ID UU14208750
[2017-05-15 08:00] VITALS: BP 118/58
[2017-05-15 12:00] VITALS: BP 138/54
[2017-05-15 13:37] LABS: INTER. NORMALIZED RATIO 1.2; PROTHROMBIN TIME 13.6 SEC (10.2-12.9)
[2017-05-15 13:40] LABS: PTT 28.5 SEC (25-37)
[2017-05-15 15:40] LABS: TYPE OF FLUID PLEURAL
[2017-05-15 16:10] VITALS: BP 114/62
[2017-05-15 16:10] LABS: BODY FLUID LDH 134 IU/L; BODY FLUID PROTEIN 3.3 G/DL
[2017-05-15 16:26] LABS: BODY FLUID EOSINOPHILS 0 % (0-25); BODY FLUID RBC'S 1000 /MM^3 (0-100); BODY FLUID WBC'S 98 /MM^3 (0-500); COMMENT MANY MACROPHAGES SEEN; MONONUCLEAR WBC'S 67 %; POLYNUCLEAR WBC'S 33 % (0-25)
[2017-05-15 20:00] VITALS: BP 90/50
[2017-05-16 00:07] VITALS: BP 110/55
[2017-05-16 04:12] VITALS: BP 115/62
[2017-05-16 06:25] LABS: HEMATOCRIT 24.7 % (38.0-50.0); MCH 31.2 PG (29.0-34.0); MCV 97.6 FL (86-99); MEAN PLAT.VOLUME 11.6 uM^3 (9.0-12.4); PLATELET COUNT 182 K/uL (156-360); RBC DIS.WIDTH-CV 17.4 % (11.8-14.6); RBC DIS.WIDTH-SD 62.4 % (39-53); RED BLOOD COUNT 2.53 M/uL (4.00-5.50); WHITE BLOOD COUNT 15.4 K/uL (4.1-10.2)
[2017-05-16 07:12] VITALS: BP 118/68
[2017-05-16 07:14] LABS: ANION GAP 11 MEQ/L (2-14); CHLORIDE 104 MEQ/L (99-109); GFR ESTIMATE (CALCULATED) 17 mL/min/; POTASSIUM 3.8 MEQ/L (3.7-5.4); SAMPLE HEMOLYSIS CHECK 0; SAMPLE ICTERIC CHECK 0; SAMPLE LIPEMIA CHECK 0; SODIUM 139 MEQ/L (136-147); UREA NITROGEN (BUN) 32 mg/dL (9-23)
[2017-05-16 07:16] LABS: GLUCOSE 84 mg/dL (70-99)
[2017-05-16 10:16] LABS: AHBS INDEX 0.26; HBSG INDEX 0.24; HEPATITIS B SURFACE ANTIBODY Nonreactive
[2017-05-16 15:45] VITALS: BP 124/70
[2017-05-16 20:42] VITALS: BP 115/60
[2017-05-17 00:18] VITALS: BP 115/65
[2017-05-17 03:47] VITALS: BP 105/55
[2017-05-17 08:10] VITALS: BP 114/56
[2017-05-17 15:30] VITALS: BP 100/42
[2017-05-17 20:04] LABS: C DIFF TOXIN NEGATIVE (NEGATIVE)
[2017-05-17 20:05] LABS: PROBE CHECK PASS; SPECIMEN PROCESSING CONTROL PASS
[2017-05-17 23:12] VITALS: BP 119/60
[2017-05-18 06:37] LABS: HEMATOCRIT 22.8 % (38.0-50.0); MCH 31.4 PG (29.0-34.0); MCHC 32.9 G/DL (30.0-36.0); MCV 95.4 FL (86-99); NRBC (%) 0.1 /100 WBC (0-0); PLATELET COUNT 197 K/uL (156-360); RBC DIS.WIDTH-CV 17.8 % (11.8-14.6); RBC DIS.WIDTH-SD 61.3 % (39-53); RED BLOOD COUNT 2.39 M/uL (4.00-5.50); WHITE BLOOD COUNT 19.7 K/uL (4.1-10.2)
[2017-05-18 06:59] LABS: ALKALINE PHOSPHATASE 56 IU/L (3-129); ANION GAP 13 MEQ/L (2-14); CHLORIDE 104 MEQ/L (99-109); GFR ESTIMATE (CALCULATED) 16 mL/min/; GLUCOSE 102 mg/dL (70-99); POTASSIUM 3.8 MEQ/L (3.7-5.4); SAMPLE HEMOLYSIS CHECK 0; SAMPLE ICTERIC CHECK 0; SAMPLE LIPEMIA CHECK 0; SODIUM 139 MEQ/L (136-147); TOTAL BILIRUBIN 0.6 MG/DL (0.0-1.0); UREA NITROGEN (BUN) 45 mg/dL (9-23)
[2017-05-18 08:15] VITALS: BP 115/59
[2017-05-18 11:20] VITALS: BP 118/68
[2017-05-18 17:24] VITALS: BP 128/60
[2017-05-19 00:21] VITALS: BP 124/52
[2017-05-19 07:54] LABS: HEMATOCRIT 20.2 % (38.0-50.0); MCH 31.3 PG (29.0-34.0); MCHC 33.2 G/DL (30.0-36.0); MCV 94.4 FL (86-99); PLATELET COUNT 219 K/uL (156-360); RBC DIS.WIDTH-CV 17.9 % (11.8-14.6); RBC DIS.WIDTH-SD 61.1 % (39-53); RED BLOOD COUNT 2.14 M/uL (4.00-5.50); WHITE BLOOD COUNT 14.5 K/uL (4.1-10.2)
[2017-05-19 08:13] LABS: ANION GAP 14 MEQ/L (2-14); CHLORIDE 103 MEQ/L (99-109); GFR ESTIMATE (CALCULATED) 14 mL/min/; GLUCOSE 95 mg/dL (70-99); POTASSIUM 3.4 MEQ/L (3.7-5.4); SAMPLE HEMOLYSIS CHECK 0; SAMPLE ICTERIC CHECK 0; SAMPLE LIPEMIA CHECK 0; SODIUM 138 MEQ/L (136-147); UREA NITROGEN (BUN) 57 mg/dL (9-23)
[2017-05-19 08:42] LABS: IRON 21 MCG/DL (35-150)
[2017-05-19 12:47] VITALS: BP 172/74
[2017-05-19] MEDS ORDERED: MORPHINE S10 MG/5 ML GT (15:32)
[2017-05-19] MEDS ORDERED: AUGMENTIN50 MG/ML PO (15:34)
== END 2017-05-19 20:16 | DRG 177 ==
LOC: EME 17:50 → 2EAST 19:56 → EDOF 19:56 → ENRESERV 20:32 → 4EAST 05-10 02:03 → ENRESERV 05-11 20:42 → 2EAST 05-11 21:32 → ENPENDDIS 05-19 19:00 → 2EAST 05-19 20:16
PROVIDERS: Emergency Medicine; Family Medicine; Internal Medicine
PROC: 5A1D70Z Performance of Urinary Filtration, Intermittent, Less than 6 Hours Per Day (ICD-10-PCS; principal; 2017-05-12)
PROC: 0DH63UZ Insertion of Feeding Device into Stomach, Percutaneous Approach (ICD-10-PCS; 2017-05-12)
PROC: 3E0G76Z Introduction of Nutritional Substance into Upper GI, Via Natural or Artificial Opening (ICD-10-PCS; 2017-05-13)
PROC: 0W993ZZ Drainage of Right Pleural Cavity, Percutaneous Approach (ICD-10-PCS; 2017-05-15)
PROC: 0W9B3ZZ Drainage of Left Pleural Cavity, Percutaneous Approach (ICD-10-PCS; 2017-05-16)
PROC: 30233N1 Transfusion of Nonautologous Red Blood Cells into Peripheral Vein, Percutaneous Approach (ICD-10-PCS; 2017-05-19)
DX: J69.0 Pneumonitis due to inhalation of food and vomit (principal); E43 Unspecified severe protein-calorie malnutrition; N18.6 End stage renal disease; J90 Pleural effusion, not elsewhere classified; I47.2 Ventricular tachycardia; R64 Cachexia; E87.2 Acidosis; Z68.1 Body mass index [BMI] 19.9 or less, adult; Z51.5 Encounter for palliative care; Z66 Do not resuscitate; W19.XXXA Unspecified fall, initial encounter; S50.311A Abrasion of right elbow, initial encounter; S40.812A Abrasion of left upper arm, initial encounter; R13.19 Other dysphagia; Z99.2 Dependence on renal dialysis; D63.1 Anemia in chronic kidney disease; E86.0 Dehydration; N40.0 Benign prostatic hyperplasia without lower urinary tract symptoms; F03.90 Unspecified dementia, unspecified severity, without behavioral disturbance, psychotic disturbance, mood disturbance, and anxiety; J44.9 Chronic obstructive pulmonary disease, unspecified; I95.3 Hypotension of hemodialysis; Y92.129 Unspecified place in nursing home as the place of occurrence of the external cause; Z85.828 Personal history of other malignant neoplasm of skin; Z87.01 Personal history of pneumonia (recurrent); Z87.442 Personal history of urinary calculi; Z87.891 Personal history of nicotine dependence; Z79.51 Long term (current) use of inhaled steroids; Z80.1 Family history of malignant neoplasm of trachea, bronchus and lung
CPT/HCPCS: 71010; 71020; 74177; 74230; 76942; 80053; 80069; 80202; 82550; 82553; 82945; 82948; 83540; 83605; 83615; 83615 91; 83880; 84155; 84157; 84466; 84484; 85025; 85027; 85610; 85730; 86706; 86850; 86900; 86901; 86920; 87040; 87070; 87205; 87340; 87493; 87641; 89051; 92611 GN; 93005; 93306; 94640; 94640 76; 94667; 94668; 94760; 94799; 99202; 99281; 99285; G8997 GN CM; G8999 GN CM; G9158 GN CM; J0690; J0881; J1170; J1644; J1756; J2250; J2543; J2704; J3370; J7040; J7042; J7050; P9016; P9047